=== PATIENT | male | born 1980 | race Caucasian/White ===

== ENCOUNTER 2019-04-13 12:43 | Emergency (ER) | payer OTHER ==
[~2019-04-13] VITALS: Ht 198.1 cm; Wt 158.8 kg
--- NOTE | 2019-04-13 12:59 | NUR ---
INDIRA OLIVER AT BEDSIDE FOR MSE.
[2019-04-13] MEDS: KETOROLAC TROMETHAMINE 30 MG INJ IM ONE (13:06)
[2019-04-13] MEDS ORDERED: KETOROLAC TROMETHAMINE 30 MG INJ ONE (13:07)
--- NOTE | 2019-04-13 13:08 | NUR ---
PT A/OX4, PRESENTS TO THE ER C/O R KNEE PAIN X 2 DAYS. PT DENIES RECENT INJURY/TRAUMA. NO VISIBLE DEFORMITY TO THE EXTREMITY. VS WNL. R KNEE PAIN IS PROVOKED UPON MOVEMENT, RADIATES DOWN THE LEG AND UP TO THE LOWER BACK, 10/10, CONSTANT. PT WAS ABLE TO SELF-AMBULATE. PT DENIES C/P, SOB, N/V/D, DIZZINESS, HEADACHE.
--- NOTE | 2019-04-13 13:12 | NUR ---
DRUM DRIER AT BEDSIDE.
--- NOTE | 2019-04-13 13:43 | NUR ---
Patient discharged to home in stable conditon. Written and verbal after care instructions given. Patient verbalizes understanding of instructions. ALL BELONGINGS W/ PT. PT SELF-AMBULATED USING CRUTCHES W/O DIFFICULTY. PT ASSISTED TO VEHICLE IN W/C FOR COMFORT.
[2019-04-13 13:44] VITALS: BP 131/88
== END 2019-04-13 13:45 | disposition home or self-care (01) ==
LOC: ER 12:43
DX: M25.561 Pain in right knee (principal)
CPT/HCPCS: 73564; 96372; 99283; J1885; A4663